=== PATIENT | male | born 2000 | race Caucasian/White ===

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

== ENCOUNTER 2020-04-22 15:44 | Emergency (ER) | payer OTHER | END 2020-04-22 16:06 | disposition home or self-care (01) | LOC: JVIRT 15:44 | DX: U07.1 COVID-19 (principal) | CPT/HCPCS: C9803; G2251-GT; Q3014-GT; U0003 ==

== ENCOUNTER 2020-10-28 11:37 | Emergency (ER) | payer OTHER ==
[2020-10-28 12:02] VITALS: BP 123/68; PULSE 72; TEMP 98.2; BMI 24.5
== END 2020-10-28 17:12 | disposition home or self-care (01) ==
LOC: JER 11:37
DX: R05 Cough (principal); J06.9 Acute upper respiratory infection, unspecified; Z11.52 Encounter for screening for COVID-19
CPT/HCPCS: 71046-TC-FY; 99284-25; C9803; U0003; U0005

== ENCOUNTER 2020-11-22 20:53 | Emergency (ER) | payer OTHER ==
[2020-11-22 20:57] VITALS: BP 127/79; PULSE 52; TEMP 97.9; BMI 24.0
== END 2020-11-22 22:10 | disposition home or self-care (01) ==
LOC: JERFT 20:53
DX: S60.449A External constriction of unspecified finger, initial encounter (principal); W49.04XA Ring or other jewelry causing external constriction, initial encounter
CPT/HCPCS: 99281-25

== ENCOUNTER 2020-12-16 18:08 | Emergency (ER) | payer OTHER ==
[2020-12-16 18:26] VITALS: BP 126/83; PULSE 73; TEMP 98.6; BMI 23.6
== END 2020-12-16 19:39 | disposition home or self-care (01) ==
LOC: JER 18:08 → JERFT 18:08
DX: B35.2 Tinea manuum (principal)
CPT/HCPCS: 87070; 87186; 87205; 99281-25

== ENCOUNTER 2022-04-13 10:56 | Emergency (ER) | payer OTHER ==
[2022-04-13 11:03] VITALS: BP 123/67; PULSE 54; RESP 18; TEMP 98.7; BMI 25.2
[2022-04-13] MEDS ORDERED: OXYMETAZOLINE 0.05% NASAL SOLUTION 15 ML BOTTLE NS ONE (12:05)
== END 2022-04-13 12:59 | disposition home or self-care (01) ==
LOC: JER 10:56
DX: S02.2XXA Fracture of nasal bones, initial encounter for closed fracture (principal); W50.0XXA Accidental hit or strike by another person, initial encounter
CPT/HCPCS: 99283-25

== ENCOUNTER 2022-05-24 22:16 | Emergency (ER) | payer OTHER ==
[2022-05-24 22:22] VITALS: TEMP 98.4; BMI 25.1
[2022-05-24] MEDS ORDERED: SODIUM CHLORIDE 0.9% 500 ML INFUS.BAG IV ONE (22:47)
[2022-05-24] MEDS ORDERED: ONDANSETRON 4 MG/2 ML VIAL IVPUSH ONE (22:47)
[2022-05-24] MEDS ORDERED: FAMOTIDINE 20 MG/50 ML IVPB 20 MG/50 ML MG IVPB ONE ×2 (22:47→23:03)
[2022-05-24] MEDS ORDERED: ONDANSETRON 4 MG/2 ML VIAL ONE (23:02)
[2022-05-24 23:21] LABS: BASO % 0.2 % (0-2.0); EOS % 0.5 % (0-4.5); HEMATOCRIT 44.7 % (35.4-49); HEMOGLOBIN 14.9 GM/dL (11.7-16.9); LYMPH % 7.7 % (8-40); MCHC 33.3 g/dl (32.0-35.9); MEAN CELL VOLUME 86.9 fl (80-96); MEAN PLT VOLUME 8.6 fl (7.5-11.1); MONO % 7.2 % (3.8-10.2); NEUT % 84.4 % (42.8-82.8); PLATELET COUNT 173 10^3/uL (134-434); RBC 5.14 M/mm3 (4.00-5.60); RDW 13.5 % (11.9-15.9); WHITE BLOOD COUNT 6.6 K/mm3 (4.0-10.0)
[2022-05-24 23:37] LABS: CALCIUM 9.4 mg/dL (8.5-10.1)
[2022-05-24 23:38] LABS: ALBUMIN 4.5 g/dl (3.4-5.0); BLOOD UREA NITROGEN 16.9 mg/dL (7-18)
[2022-05-24 23:41] LABS: CREATININE 1.5 mg/dL (0.55-1.3)
[2022-05-24 23:42] LABS: BILIRUBIN,TOTAL 1.7 mg/dL (0.2-1); TOT PROT 7.4 g/dl (6.4-8.2)
[2022-05-24] MEDS ORDERED: SODIUM CHLORIDE 0.9% 1000 ML INFUS.BAG IV ONE (23:52)
[2022-05-25 00:10] LABS: BILIRUBIN,DIRECT 0.4 mg/dL (0.0-0.2)
[2022-05-25 01:43] VITALS: BP 120/65; PULSE 80; RESP 14
== END 2022-05-25 01:43 | disposition home or self-care (01) ==
LOC: JER 22:16
PROC: 3E033GC Introduction of Other Therapeutic Substance into Peripheral Vein, Percutaneous Approach (ICD-10-PCS; principal; 2022-05-24)
PROC: 3E033GC Introduction of Other Therapeutic Substance into Peripheral Vein, Percutaneous Approach (ICD-10-PCS; 2022-05-24)
DX: K52.9 Noninfective gastroenteritis and colitis, unspecified (principal)
CPT/HCPCS: 36415; 76705-TC; 80053; 82248; 83690; 85025; 99284-25